=== PATIENT | female | born 1985 | race Hispanic/Latino ===

== ENCOUNTER 2019-02-14 08:51 | Emergency (ER) | payer SELFPAY ==
[2019-02-14] MEDS ORDERED: ZOFRAN IV ONE (10:11)
[2019-02-14] MEDS ORDERED: TORADOL IV ONE (10:11)
[2019-02-14] MEDS ORDERED: MORPHINE IV ONE (10:11)
--- NOTE | 2019-02-14 11:03 | Cat Scan Report ---
CT FACIAL BONES WITHOUT CONTRAST INDICATION : Right jaw injury secondary to fall 3 days ago. TECHNIQUE: Axial imaging performed through the face with reconstructed images also reviewed. Sagitta l and coronal reformatted images. All CT scans at this location are performed using CT dose reduction for ALARA by means of automated exposure control. COMPARISON: None FINDINGS: A nondisplaced fracture is identified through the left anterior mandible. Fracture lines e xtend to the incisor tooth roots. No tooth root fracture is identified. The remainder of the mandible is intact. Normal articulation at the temporomandibular joints. The orbital cavities, sinuses, nasal bones, upper cervical spine and skull base are intact. Moderate left facial soft tissue swelling. IMPRESSION: Nondisplaced left mandible fracture as described Signer Name: Andrew Donahue Jr, MD Signed: 02/14/2019 10:59 AM Workstation Name: [id number]
[2019-02-14] MEDS ORDERED: CLEOCIN 600 MG/50 mL 600 MG/50 ML BAG IV ONE (11:25)
--- NOTE | 2019-02-14 11:57 | Emergency Department Report ---
ED Head Trauma HPI - General Chief complaint: Head Injury Stated complaint: POSS BROKEN JAW Time Seen by Provider: 02/14/19 10:02 Source: patient Mode of arrival: Ambulatory Limitations: No Limitations - History of Present Illness Initial comments: Patient is a 34-year-old female suffered an injury to the left jaw last night. Patient was in [place] and she was at a pool she slipped and fell and struck the left jaw on the edge of the pool. She immediately had swelling. Patient did not want to go to the hospital in [place] or miss her flight back home so she traveled home and arrived to [facility] this morning and came directly to our hospital. Patient states she feels instability when she tries to open her mouth and feels as though something is moving. Pain is 8 out of 10 in severity and there is no swelling. She has no loss of consciousness or headache at this time. No issues with swallowing. - Related Data Allergies/Adverse reactions: Allergies Allergy/AdvReac Type Severity Reaction Status Date / Time No Known Allergies Allergy Verified 02/14/19 09:15 ED Review of Systems ROS: Stated complaint: POSS BROKEN JAW Other details as noted in HPI Comment: All other systems reviewed and negative ED Past Medical Hx - Past Medical History Previous Medical History?: No - Surgical History Past Surgical History?: Yes Additional Surgical History: c section - Social History Smoking Status: Current Every Day Smoker Substance Use Type: Alcohol ED Physical Exam - General Limitations: No Limitations General appearance: alert, in no apparent distress - Head Head exam: Present: atraumatic, normocephalic - Eye Eye exam: Present: normal appearance - ENT ENT exam: Present: mucous membranes moist - Expanded ENT Exam Expanded Mouth exam: Present: other (patient has a nonbleeding laceration between tooth #20-21. When the patient tries to open the mouth there is separation of these 2 teeth. Patient has significant swelling and bruising to the left jaw externally.). Absent: drooling - Neck Neck exam: Present: normal inspection - Respiratory Respiratory exam: Present: normal lung sounds bilaterally. Absent: respiratory distress - Cardiovascular Cardiovascular Exam: Present: regular rate, normal rhythm. Absent: systolic mur mur, diastolic murmur, rubs, gallop - GI/Abdominal GI/Abdominal exam: Present: soft, normal bowel sounds - Extremities Exam Extremities exam: Present: normal inspection - Back Exam Back exam: Present: normal inspection - Neurological Exam Neurological exam: Present: alert, oriented X3 - Psychiatric Psychiatric exam: Present: normal affect, normal mood - Skin Skin exam: Present: warm, dry, intact, normal color. Absent: rash ED Course Vital Signs 02/14/19 02/14/19 02/14/19 09:15 10:25 10:58 Temperature 98.2 F Pulse Rate 113 H Respiratory 16 16 18 Rate Blood Pressure 119/73 O2 Sat by Pulse 99 Oximetry - Radiology Data [facility] [address] [place] [address] Cat Scan Report Signed Patient: NICHELLE ARRIETA MR#: [id number] 97 : 1985 Acct:[id number] Age/Sex: 34 / F ADM Date: 02/14/19 Loc: ED Attending Dr: Ordering Physician: BLANCA HARDIN MD Date of Service: 02/14/19 Procedure(s): CT facial bones wo con Accession Number(s): [id number] cc: BLANCA HARDIN MD CT FACIAL BONES WITHOUT CONTRAST INDICATION : Right jaw injury secondary to fall 3 days ago. TECHNIQUE: Axial imaging performed through the face with reconstructed images also reviewed. Sagittal and coronal reformatted images. All CT scans at this location are performed using CT dose reduction for ALARA by means of automated exposure control. COMPARISON: None FINDINGS: A nondisplaced fracture is identified through the left anterior mandible. Fracture lines extend to the incisor tooth roots. No tooth root fracture is identified. The remainder of the mandible is intact. Normal articulation at the temporomandibular joints. The orbital cavities, sinuses, nasal bones, upper cervical spine and skull base are intact. Moderate left facial soft tissue swelling. IMPRESSION: Nondisplaced left mandible fracture as described Signer Name: Andrew Donahue Jr, MD Signed: 02/14/2019 10:59 AM Workstation Name: [id number] Transcribed By: TTR Dictated By: ANDREW DONAHUE JR, MD Electronically Authenticated By: ANDREW DONAHUE JR, MD Signed Date/Time: 02/14/19 1059 - Medical Decision Making Patient has an open fracture to the mandible. Fracture appears unstable. The patient was given medication for pain relief and started on clindamycin IV. I did speak with Dr. Donahue with trauma surgery at [facility] and the patient be transferred. Critical care attestation.: If time is entered above; I have spent that time in minutes in the direct care of this critically ill patient, excluding procedure time. ED Disposition Clinical Impression: Mandible open fracture Qualifiers: Encounter type: initial encounter Mandible location: body Laterality: left Qualified Code(s): S02.602B - Fracture of unspecified part of body of left mandible, initial encounter for open fracture Disposition: DC/TX-70 ANOTHER TYPE HLTHCARE Is pt being admited?: No Does the pt Need Aspirin: No Condition: Stable Time of Disposition: 11:56
[2019-02-14 13:23] VITALS: BP 107/55
== END 2019-02-14 13:22 | disposition other institution (70) ==
LOC: ED 08:51
DX: S02.602B Fracture of unspecified part of body of left mandible, initial encounter for open fracture (principal); F17.200 Nicotine dependence, unspecified, uncomplicated; W01.198A Fall on same level from slipping, tripping and stumbling with subsequent striking against other object, initial encounter; Y93.89 Activity, other specified; Y92.89 Other specified places as the place of occurrence of the external cause; Y99.8 Other external cause status
CPT/HCPCS: 70486; 96365; 96375; 99285; J1885; J2270; J2405